=== PATIENT | male | born 1950 | race African-American/Black ===

== ENCOUNTER 2019-07-10 16:37 | Inpatient (IN) | payer OTHER ==
[~2019-07-10] VITALS: Ht 185.4 cm; Wt 108.9 kg
[2019-07-10 16:38] VITALS: Ht 185.4 cm; Wt 108.9 kg
[2019-07-10 18:04] LABS: AMPHETAMINE QUAL UR NONE DETECTED (See below)
[2019-07-10 18:09] LABS: microscopic required? YES; urine erythrocyte TRACE (NEGATIVE)
[2019-07-10 18:33] LABS: BASOPHIL % 0.1 % (0-2); PLATELET COUNT 270 x10^3mcL (130-400)
[2019-07-10 18:38] LABS: RED CELL DISTRIBUTION WIDTH 15.6 % (11.5-14.5)
[2019-07-10 18:54] LABS: CALCIUM 8.7 mg/dL (8.5-10.1); CARBON DIOXIDE 22.6 mmol/L (21-32); CHLORIDE SERUM 102 mmol/L (98-107); CREATININE SERUM 1.4 mg/dL (0.7-1.3); GFR1 54 mL/min; GLUCOSE SERUM 280 mg/dL (74-106); POTASSIUM SERUM 4.3 mmol/L (3.5-5.1); SODIUM SERUM 138 mmol/L (136-145)
[2019-07-10 18:59] LABS: ALBUMIN 3.4 g/dL (3.4-5.0); ALKALINE PHOSPHATASE 62 U/L (46-116); ALT/SGPT 12 U/L (16-63); AST/SGOT 11 U/L (15-37); BILIRUBIN TOTAL 0.4 mg/dL (0.20-1.00); TOTAL PROTEIN, SERUM 7.5 g/dL (6.4-8.2)
[2019-07-10] MEDS ORDERED: MASON NATURAL1000 IU PO ×2 (20:24→20:27)
[2019-07-10] MEDS ORDERED: FLOMAX0.4 MG PO (20:24)
[2019-07-10] MEDS ORDERED: LIPI10 PO (20:25)
[2019-07-10] MEDS ORDERED: HYDROCHLOROTH12.5 M2 PO (20:25)
[2019-07-10] MEDS ORDERED: ZESTRIL20 MG PO (20:25)
[2019-07-10] MEDS ORDERED: LANTUS SOLOS100 U/M1 SC (20:26)
[2019-07-10] MEDS ORDERED: ELIGARD22.5 MG IM (20:26)
[2019-07-10] MEDS ORDERED: APAP500 MG PO (20:27)
[2019-07-10] MEDS ORDERED: GLU850 PO (20:28)
[2019-07-10] MEDS ORDERED: AFREZZA1 EAC1 SC (20:29)
[2019-07-10 21:40] VITALS: BP 140/82
[2019-07-11 05:01] VITALS: BP 130/74
[2019-07-11 06:49] LABS: BASOPHIL % 0.2 % (0-2); PLATELET COUNT 242 x10^3mcL (130-400)
[2019-07-11 07:19] LABS: RED CELL DISTRIBUTION WIDTH 15.3 % (11.5-14.5)
[2019-07-11 07:24] LABS: CALCIUM 8.1 mg/dL (8.5-10.1); CARBON DIOXIDE 22.9 mmol/L (21-32); CHLORIDE SERUM 104 mmol/L (98-107); GFR1 > 60 mL/min; GLUCOSE SERUM 146 mg/dL (74-106); POTASSIUM SERUM 3.6 mmol/L (3.5-5.1); SODIUM SERUM 138 mmol/L (136-145)
[2019-07-11 09:00] VITALS: BP 155/91
[2019-07-11 12:05] VITALS: BP 171/94
[2019-07-11 16:11] VITALS: BP 148/85
[2019-07-11 20:32] VITALS: BP 126/85
[2019-07-11 21:23] LABS: TOTAL PROTEIN CSF 173.5 mg/dL (15-45)
[2019-07-11 21:34] LABS: APPEARANCE CSF CLEAR; COLOR CSF PINK; RBC CSF 767 /cumm (0); WBC CSF 2 /cumm (0-5)
[2019-07-12 04:27] VITALS: BP 129/74
[2019-07-12 06:36] LABS: BASOPHIL % 0.4 % (0-2); PLATELET COUNT 227 x10^3mcL (130-400)
[2019-07-12 06:41] LABS: RED CELL DISTRIBUTION WIDTH 15.6 % (11.5-14.5)
[2019-07-12 06:42] LABS: CALCIUM 7.9 mg/dL (8.5-10.1); CARBON DIOXIDE 23.9 mmol/L (21-32); CHLORIDE SERUM 103 mmol/L (98-107); GFR1 > 60 mL/min; GLUCOSE SERUM 194 mg/dL (74-106); POTASSIUM SERUM 3.4 mmol/L (3.5-5.1); SODIUM SERUM 139 mmol/L (136-145)
[2019-07-12 08:48] VITALS: BP 124/84
[2019-07-12 13:02] VITALS: BP 120/67
[2019-07-12 16:50] VITALS: BP 130/70
[2019-07-12 20:52] VITALS: BP 133/77
[2019-07-13 06:02] VITALS: BP 118/76
[2019-07-13 08:42] VITALS: BP 145/84
[2019-07-13 12:40] VITALS: BP 118/69
[2019-07-13 17:25] VITALS: BP 120/75
[2019-07-13 21:00] VITALS: BP 116/64
[2019-07-14 05:27] VITALS: BP 128/75
[2019-07-14 06:32] LABS: BASOPHIL % 0.5 % (0-2); PLATELET COUNT 239 x10^3mcL (130-400)
[2019-07-14 07:04] LABS: CALCIUM 7.7 mg/dL (8.5-10.1); CARBON DIOXIDE 24.5 mmol/L (21-32); CHLORIDE SERUM 105 mmol/L (98-107); CREATININE SERUM 1.1 mg/dL (0.7-1.3); GFR1 > 60 mL/min; GLUCOSE SERUM 191 mg/dL (74-106); POTASSIUM SERUM 3.3 mmol/L (3.5-5.1); SODIUM SERUM 139 mmol/L (136-145)
[2019-07-14 08:55] VITALS: BP 143/81
[2019-07-14 10:33] VITALS: BP 143/81
[2019-07-14 12:30] VITALS: BP 148/71
== END 2019-07-14 15:55 | disposition other institution (70) | DRG 101 ==
LOC: ED 16:37 → DU 19:44
PROVIDERS: Emergency Medicine; ADMIT Internal Medicine
PROC: 009U3ZX Drainage of Spinal Canal, Percutaneous Approach, Diagnostic (ICD-10-PCS; principal; 2019-07-11)
PROC: B01B1ZZ Fluoroscopy of Spinal Cord using Low Osmolar Contrast (ICD-10-PCS; 2019-07-11)
DX: G40.909 Epilepsy, unspecified, not intractable, without status epilepticus (principal); E87.2 Acidosis; R65.10 Systemic inflammatory response syndrome (SIRS) of non-infectious origin without acute organ dysfunction; E11.65 Type 2 diabetes mellitus with hyperglycemia; R09.02 Hypoxemia; I10 Essential (primary) hypertension; Z68.31 Body mass index [BMI] 31.0-31.9, adult; Z79.84 Long term (current) use of oral hypoglycemic drugs; Z88.6 Allergy status to analgesic agent; Z86.73 Personal history of transient ischemic attack (TIA), and cerebral infarction without residual deficits
CPT/HCPCS: 36600; 62272; 82962; G0378; G0480; J0133; J0290; J0696; J1815; J2001; J3370; J7030; J7060; Q0092